=== PATIENT | female | born 1980 | race Caucasian/White ===

== ENCOUNTER 2018-02-09 12:21 | Emergency (ER) | payer OTHER ==
[~2018-02-09] VITALS: Ht 160 cm; Wt 71.7 kg
[~2018-02-09 12:21] MED LIST: ADDERALL 20 MG20 MG; ATIVAN1 MG PO; CATAPRES-TTS 10.1 MG; CELEXA40 MG; CIPROFLOXACIN500 M1 PO; CLEOCIN HCL300 MG PO; CLONAZEPAM 0.50.5 M1; DOXYCYCLINE 10100 MG PO; FLAGYL500 MG PO; GENTAMICIN 0.1%15 G2 TOP; HYDROCODONE-AP1 EAC6 PO; IBUPROFEN 800800 M1 PO; K-DUR 20 MEQ T20 MEQ PO; LEXAPRO 10 MG T10 M1; LEXAPRO 10 MG T10 M1 PO; LIDOCAINE VISC100 M1 SWISH&SPIT; NORCO 5-325 TA1 EACH PO; PAXIL10 MG; PHENERGAN-CODE120 ML PO; PREVACID 15 MG15 M4; PROAIR HFA8.5 GM INH; XANAX 1 MG TABLE1 MG PO; XANAX1 MG; XANAX1 MG PO; ZOFRAN ODT4 MG PO
[2018-02-09] MEDS ORDERED: SEROQUEL 50 MG50 MG PO ×2 (12:34→12:39)
[2018-02-09] MEDS ORDERED: XANAX 1 MG TABLE1 MG PO (12:39)
[2018-02-09 12:45] VITALS: BP 110/62
== END 2018-02-09 12:45 | disposition home or self-care (01) ==
LOC: M.ERS 12:21
DX: F13.239 Sedative, hypnotic or anxiolytic dependence with withdrawal, unspecified (principal); F32.9 Major depressive disorder, single episode, unspecified; F41.9 Anxiety disorder, unspecified; K21.9 Gastro-esophageal reflux disease without esophagitis; F17.210 Nicotine dependence, cigarettes, uncomplicated; Z76.0 Encounter for issue of repeat prescription; Z88.1 Allergy status to other antibiotic agents; Z88.8 Allergy status to other drugs, medicaments and biological substances; Z88.0 Allergy status to penicillin

== ENCOUNTER 2018-03-05 19:10 | Emergency (ER) | payer OTHER ==
[~2018-03-05] VITALS: Ht 160 cm; Wt 71.7 kg
[~2018-03-05 19:10] MED LIST changes: +SEROQUEL 50 MG50 MG PO
[2018-03-05] MEDS ORDERED: ZANTAC 150MG T150 MG (19:35)
[2018-03-05 19:37] LABS: URINE BILIRUBIN NEGATIVE (Negative); URINE BLOOD TRACE (Negative); URINE CLARITY CLEAR; URINE COLOR YELLOW; URINE GLUCOSE-RANDOM NEGATIVE (Negative); URINE KETONES NEGATIVE (Negative); URINE LEUKOCYTES-REFLEX 2+ (Negative); URINE NITRITE-REFLEX POSITIVE (Negative); URINE PROTEIN NEGATIVE (Negative); URINE SPECIFIC GRAVITY <= 1.005 (1.005-1.030); URINE UROBILINOGEN 0.2 E.U./dl (0.2-1.0)
[2018-03-05 19:42] LABS: SQUAMOUS 4-10 Moderate /LPF (0-3)
[2018-03-05 19:43] LABS: BACTERIA-REFLEX >30 Many /HPF (None Seen); CASTS None Seen /LPF (None Seen); CRYSTALS None Seen /LPF (None Seen); URINE RBC 0-2 Rare /HPF (0-2); URINE WBC-REFLEX 6-15 Few /HPF (0-5)
[2018-03-05] MEDS ORDERED: KEFLEX500 M1 PO (19:46)
[2018-03-05] MEDS ORDERED: ACETAMINOPHEN-1 EAC1 PO (19:46)
[2018-03-05 20:10] VITALS: BP 97/65
== END 2018-03-05 20:12 | disposition home or self-care (01) ==
LOC: M.ERS 19:10
PROVIDERS: Physician Assistant
DX: N39.0 Urinary tract infection, site not specified (principal); K08.89 Other specified disorders of teeth and supporting structures; F32.9 Major depressive disorder, single episode, unspecified; F41.9 Anxiety disorder, unspecified; K21.9 Gastro-esophageal reflux disease without esophagitis; F17.210 Nicotine dependence, cigarettes, uncomplicated; Z90.89 Acquired absence of other organs; Z90.710 Acquired absence of both cervix and uterus; Z88.1 Allergy status to other antibiotic agents; Z88.0 Allergy status to penicillin; Z88.2 Allergy status to sulfonamides; Z88.8 Allergy status to other drugs, medicaments and biological substances